=== PATIENT | female | born 1950 | race Caucasian/White ===

== ENCOUNTER 2024-03-29 07:01 | Day surgery (SDC) | payer MEDICARE, OTHER, SELFPAY ==
[2024-03-25 14:01] VITALS: BMI 24.7
--- NOTE | 2024-03-28 13:15 | HO.ANESPROP2 ---
HPI - Anesthesia Eval Consult details Narrative: 73yo F for Colonoscopy Seen at [facility] cardiology for JONES, resolved. PRN cardiology f/u only 1.? Dyspnea with exertion.??No evidence of?coronary atherosclerosis to explain the patient's symptoms.? No heart failure. ?No hypertension.? The patient's symptoms appear resolved. ?She will continue?with an exercise regimen. 2.? Carotid atherosclerosis;?duplex scan suggests plaque burden is minimal.? I think it is reasonable?to continue on?a statin for?prevention.? I have ordered a repeat lipid profile.? I do not feel strongly about?antiplatelet therapy. [facility] Past Medical History Medical History Seizure Allergic rhinitis Abnormal stress test Glaucoma GERD (gastroesophageal reflux disease) Osteoporosis Carotid atherosclerosis HTN (hypertension) Hyperlipidemia Surgical History Surgical History H/O eye surgery History of 3 sections H/O colonoscopy History of esophagogastroduodenoscopy (EGD) Social History Social History Patient Tobacco Use Status: Never used Tobacco Use of substances other than those prescribed or required for medical reasons: No Are you DNR?: No Advance Directives: No Advance Directives Information Provided: Yes Advance Directives on File: No Nutrition Risks: No Nutritional Risk Patient : No Meds Allergies Allergy/AdvReac Type Severity Reaction Status Date / Time ibuprofen [From Advil] Allergy Severe Anaphylaxis Verified 03/29/24 07:20 omeprazole [From Prilosec] Allergy Severe Hives Verified 03/29/24 07:20 Home Medications ?Medication ?Instructions ?Recorded ?Confirmed ?Last Taken ?Type atorvastatin 10 mg tablet 10 mg PO DAILY 03/25/24 03/25/24 Unknown History dorzolamide 2 % eye drops 1 drp ophthalmic (eye) BID 03/25/24 03/25/24 Unknown History epinephrine 0.3 mg/0.3 mL 0.3 mg IM NEEDED PRN anaphylaxis 03/25/24 03/25/24 Unknown History injection, auto-injector loratadine 10 mg tablet 10 mg PO DAILY 03/25/24 03/25/24 Unknown History Exam Height,Weight and Vital Signs: Height 5 ft 1.5 in Weight 60.328 kg Pertinent Lab Results Pertinent Lab Results: WBC: 6.7 k/mm3 (04/22/23) RBC: 4.72 m/mm3 (04/22/23) Hgb: 14.9 Gm/dL (04/22/23) Hct: 44.8 % (04/22/23) MCV: 94.9 femtoliters (04/22/23) MCH: 31.6 pg (04/22/23) MCHC: 33.3 g/dL (04/22/23) Platelet Count: 271 k/mm3 (04/22/23) RDW-SD: 46.4 femtoliters (04/22/23) Nucleated RBC (Automated): 0 #/100 WBC'S (04/22/23) Sodium: 142 mmol/L (04/22/23) Potassium: 4 mmol/L (04/22/23) Chloride: 106 mmol/L (04/22/23) Bicarbonate Level: 26 mmol/L (04/22/23) Glucose Level: 92 mg/dL (04/22/23) BUN: 10 mg/dL (04/22/23) Creatinine-Blood: 0.7 mg/dL (04/22/23) Calcium: 9.4 mg/dL (04/22/23) Protein, Total: 6.8 Gm/dL (10/20/22) Albumin: 4.1 Gm/dL (10/20/22) Alkaline Phosphatase: 79 units/L (10/20/22) AST (SGOT): 25 units/L (10/20/22) ALT (SGPT): 19 units/L (10/20/22) Bilirubin, Total: 0.4 mg/dL (10/20/22) Cholesterol: 193 mg/dL (10/20/22) Triglycerides: 94 mg/dL (10/20/22) HDL Cholesterol: 95 mg/dL (10/20/22) LDL Cholesterol: 79 mg/dL (10/20/22) Non HDL Cholesterol: 98 mg/dL (10/20/22) Narrative Narrative: CT Heart/Coronary/3D/Morph ? 09:50:12 IMPRESSION: Mild motion degraded exam. No definite significant coronary artery stenosis. No coronary artery calcification. WSN: [id number] Ordering Physician: Zachary Bentley ? Signed By: Asia MENJIVAR, Mindy Ramirez StudiesVL Carotid Duplex Scan Bilat ? 09:02:54 Summary: Right side: 1-49% stenosis of the Internal Carotid Artery. Antegrade Vertebral artery flow. Multiphasic Subclavian artery flow. Left side: 1-49% stenosis of the Internal Carotid Artery. Antegrade Vertebral artery flow. Multiphasic Subclavian artery flow. Very minimal plaque visualized bilaterally. Comparison is made to the previous ultrasound study dated 03/28/22. Assessment and Plan Assessment Anesthesia Assessment: Chart Reviewed
[2024-03-29 07:15] VITALS: BMI 24.2
[2024-03-29 07:34] VITALS: BP 106/70; PULSE 70; RESP 16; TEMP 36.7; O2SAT 99
[2024-03-29] MEDS: Lactated Ringers 1,000 ML 100 ML IVCONT (07:49)
--- NOTE | 2024-03-29 07:50 | HO.ANESPROP2 ---
[facility] Past Medical History Medical History Seizure Allergic rhinitis Abnormal stress test Glaucoma GERD (gastroesophageal reflux disease) Osteoporosis Carotid atherosclerosis HTN (hypertension) Hyperlipidemia Functional capacity: independent ambulation Patient : No Family History Family history of problems with anesthesia: No Surgical History Surgical History H/O eye surgery History of 3 sections H/O colonoscopy History of esophagogastroduodenoscopy (EGD) History of Problems with Anesthesia: No Social History Social History Patient Tobacco Use Status: Never used Tobacco Use of substances other than those prescribed or required for medical reasons: No Are you DNR?: No Advance Directives: No Advance Directives Information Provided: Yes Advance Directives on File: No Nutrition Risks: No Nutritional Risk Patient : No Meds Allergies Allergy/AdvReac Type Severity Reaction Status Date / Time ibuprofen [From Advil] Allergy Severe Anaphylaxis Verified 03/29/24 07:20 omeprazole [From Prilosec] Allergy Severe Hives Verified 03/29/24 07:20 Active Medications: Current Medications Lactated Ringer's (Lr) 1,000 mls @ 100 mls/hr IVCONT .Q10H TRINIDAD Last Admin: 03/29/24 07:49 Dose: 100 mls/hr Home Medications ?Medication ?Instructions ?Recorded ?Confirmed ?Last Taken ?Type atorvastatin 10 mg tablet 10 mg PO DAILY 03/25/24 03/25/24 Unknown History dorzolamide 2 % eye drops 1 drp ophthalmic (eye) BID 03/25/24 03/25/24 Unknown History epinephrine 0.3 mg/0.3 mL 0.3 mg IM NEEDED PRN anaphylaxis 03/25/24 03/25/24 Unknown History injection, auto-injector loratadine 10 mg tablet 10 mg PO DAILY 03/25/24 03/25/24 Unknown History Exam Height,Weight and Vital Signs: Height 5 ft 2 in Weight 59.988 kg Last Vital Signs Temp 98.1 F 03/29/24 07:34 Pulse 70 03/29/24 07:34 Resp 16 03/29/24 07:34 BP 106/70 03/29/24 07:34 Pulse Ox 99 03/29/24 07:34 O2 Del Method Room Air 03/29/24 07:34 Airway Mallampati Class: II TM Dist: >3cm Neck ROM: Full Heart: RRR Lungs: CTA Assessment and Plan Assessment Anesthesia Assessment: Anesthesia Plan Discussed and Chart Reviewed Final Anesthetic Review Family History of Problems with Anesthesia: No History of Problems with Anesthesia: No NPO: Yes ASA Class: II Final Preanesthetic Review: Meds/Allgs Chart Reviewed, Consent Obtained/Reviewed and Anes Risks/Benef Reviewed Patient Risk: Low Procedure Risk: Low Anesthetic Plan Anesthetic Plan: MAC: Disposition: Standard PACU
--- NOTE | 2024-03-29 08:28 | P.HPSUR_ITS ---
Pre-Procedural Eval Section A - 24 Hr Update-Section A only Date of Service: 03/29/24 Section B - Complete if H&P > 30 days Chief Complaint: Encounter for screening for malignant neoplasm of Details of Present Illness: see H&P no changes Relevant Family History (Specify if Yes): Yes Relevant Social History: None Present Medications: see Short Stay Collaborative assessment Medical History: No relevant PMH Allergies: Allergies Allergy/AdvReac Type Severity Reaction Status Date / Time ibuprofen [From Advil] Allergy Severe Anaphylaxis Verified 03/29/24 07:20 omeprazole [From Prilosec] Allergy Severe Hives Verified 03/29/24 07:20 Review of Systems Sugical H&P ROS: Negative: Constitution, Cardiovascular, Respiratory, Neurological, Psychiatric, Hem-Onc, Allergic/Immunologic, Gastrointestinal, Genitourinary, Musculoskeletal, Integumentary, Endocrine and E yes/Ears/Nose/Throat Exam Surgical H&P Exam: Normal: HEENT, Normal: Heart, Normal: Lungs, Normal: Extremities, Normal: Abdomen, Normal: Skin and Normal: Neurological Plan Diagnosis/Plan: Unchanged I have reviewed the history and physical and performed a pertinent physical examination on my patient. No changes have occurred unless specified. Time Spent With Patient Time: Total time managing care of this patient today ____ minutes.
[2024-03-29 09:05] VITALS: BP 108/49; PULSE 62; RESP 12; TEMP 36.6; O2SAT 98
--- NOTE | 2024-03-29 09:11 | OP_ITS ---
DATE OF SERVICE: 03/29/2024 SURGEON: Shan Wolf MD INDICATIONS: Colon cancer screening and family history of colon cancer. PREOPERATIVE DIAGNOSIS: POSTOPERATIVE DIAGNOSIS: PROCEDURE PERFORMED: Colonoscopy to the terminal ileum. ESTIMATED BLOOD LOSS: COMPLICATIONS: ANESTHESIA: Monitored anesthesia care. ASSISTANTS: SPECIMENS: DESCRIPTION OF PROCEDURE: A history and physical were performed. The risks and benefits of the procedure were explained to the patient, and informed consent was obtained. The patient was placed in the left lateral decubitus position. A digital rectal exam was performed and was found to be normal. The Olympus pediatric video colonoscope was introduced into the rectum and advanced to the cecum. The cecum was identified by transillumination, palpation, and identification of ileocecal valve. Examination was performed, and the scope was removed. She tolerated the procedure well and was taken to the recovery in stable condition. FINDINGS: The terminal ileum was examined and appeared normal. The visualized colonic mucosa was normal. The quality of the prep was good. No polyps were identified. Retroflexed examination showed some small internal hemorrhoids. IMPRESSION: Normal colonoscopy. RECOMMENDATION: 1. Follow up as needed. 2. Repeat colonoscopy in 5 years could be considered. This is optional due to the patient's age. MD MARGARITA Campbell/TERAL / [id number]
[2024-03-29 09:20] VITALS: BP 108/55; PULSE 62; RESP 15; TEMP 36.7; O2SAT 96
--- NOTE | 2024-03-29 10:38 | HO.POSTANES ---
Post Anesthesia Evaluation Post Anesthesia Evaluation Date of Service: 03/29/24 Vital Signs: Vital Signs Temp Pulse Resp BP Pulse Ox O2 Del Method 03/29/24 09:20 98.0 F 62 15 108/55 L 96 Room Air 03/29/24 09:05 98 F 62 12 108/49 L 98 Room Air 03/29/24 07:34 98.1 F 70 16 106/70 99 Room Air Anesthesia: Monitored Mental Status: Awake Pain Control: Satisfactory Nausea/Vomiting: None Hydration: Adequate Anesthesia-Related Issues: No Anes. Related Issues
== END 2024-03-29 09:42 | disposition home or self-care (01) ==
PROVIDERS: PCP Internal Medicine; Visit Provider Internal Medicine Gastroenterology
PROC: 0DJD8ZZ Inspection of Lower Intestinal Tract, Via Natural or Artificial Opening Endoscopic (ICD-10-PCS; CPT 45378; principal; 2024-03-29 08:30)
DX: Z12.11 Encounter for screening for malignant neoplasm of colon (principal); Z80.0 Family history of malignant neoplasm of digestive organs; K64.8 Other hemorrhoids; K21.9 Gastro-esophageal reflux disease without esophagitis; I10 Essential (primary) hypertension; E78.5 Hyperlipidemia, unspecified; I77.9 Disorder of arteries and arterioles, unspecified; M81.0 Age-related osteoporosis without current pathological fracture; Z79.899 Other long term (current) drug therapy; Z88.8 Allergy status to other drugs, medicaments and biological substances; Z88.6 Allergy status to analgesic agent
CPT/HCPCS: G0105; J2003; J2704